=== PATIENT | female | born 1955 | race Caucasian/White ===

== ENCOUNTER 2023-10-09 13:00 | Outpatient (RCR) | payer MEDICARE, BC, SELFPAY | END 2024-01-01 11:01 | disposition home or self-care (01) | PROVIDERS: PCP Family Medicine; Visit Provider Family Medicine | DX: M54.6 Pain in thoracic spine (principal); G89.29 Other chronic pain; M54.50 Low back pain, unspecified; R29.3 Abnormal posture; M62.81 Muscle weakness (generalized); R29.898 Other symptoms and signs involving the musculoskeletal system; Z51.89 Encounter for other specified aftercare | CPT/HCPCS: 97110; 97140; 97161 ==

== ENCOUNTER 2024-04-30 06:05 | Inpatient (IN) | payer MEDICARE, BC, SELFPAY ==
[2024-04-30] VITALS (23 sets, daily range): BP systolic 95–146; BP diastolic 60–90; PULSE 60–80; RESP 13–19; TEMP 35.6–36.4; O2SAT 92–97; BMI 38.7
[2024-04-30] MEDS: OXYCODONE (CR) 10 MG TAB.ER.12H PO (06:40)
[2024-04-30] MEDS: ACETAMINOPHEN 500 MG TABLET 1000 MG PO ×3 (06:40→17:37)
[2024-04-30] MEDS: LACTATED RINGERS 1000 ML 1,000 ML 100 ML IV ×2 (06:53→08:56)
[2024-04-30] MEDS: SODIUM CHLORIDE 0.9 % (FLUSH) 10 ML SYRINGE IVF (06:54)
--- NOTE | 2024-04-30 07:01 | W.PM.H&PU ---
History & Physical Update History & Physical Update H&P Reviewed and patient assessed: No changes noted
--- NOTE | 2024-04-30 07:03 | CRLHL7_ITS ---
For Patients: As a result of the Cures Act, medical imaging exams and procedure reports are released immediately into your electronic medical record. You may view this report before your referring provider. If you have questions, please contact your health care provider. Indication: Postop TKA. Technique: Two views left knee Comparison: None. Findings: Left knee arthroplasty in anatomic alignment. No periprosthetic lucency or fracture. Expected postsurgical soft tissue changes. Impression: Left knee arthroplasty without radiographic evidence of complication. Dictated by Fco Medina MD @ 05/01/2024 11:43:48 AM (Electronically Signed)
[2024-04-30] MEDS: fentaNYL 100 MCG/2 ML inj IVP (07:11)
[2024-04-30] MEDS: MIDAZOLAM HCL 1 MG/ML inj IVP (07:11)
--- NOTE | 2024-04-30 07:18 | W.ANESCHARGE ---
Anesthesia Charges Start Date/Time Anesthesia Start Date: 04/30/24 Anesthesia Start Time: 07:42 Stop Date/Time Anesthesia Stop Date: 04/30/24 Anesthesia Stop Time: 09:24
--- NOTE | 2024-04-30 07:18 | W.PM.NB ---
Nerve Block Nerve Block Time Seen by Provider: 07:15 Date Seen: 04/30/24 Type of block requested by surgeon for post-operative analgesia: adductor canal Side: right Time out performed: Yes Verification of patient name: Yes Verification of date of : Yes Site marking: site marked Name of person performing procedure: Amor Continuous monitoring Was continuous monitoring of O2 sat, B/P, dental laboratory manager, recorded every 15 minutes?: Yes Procedure Checklist: sterile prep, needles and gloves Ultrasound guided. Images saved: Yes Medications given in 5ml increments after negative aspiration: Ropivicaine %: 0.5 mL: 20 Needle gauge: 20 Decadron (mg): 10 Precedex (mcg): 25 Patient tolerated procedure well: Yes Additional comments: Needle noted adjacent to nerve Block Charges Block Charge (with Pro Fee): Femoral Nerve Use of Ultrasound Machine for Block: Yes- US Guidance/pain block
--- NOTE | 2024-04-30 07:19 | P.NB_ITS ---
Nerve Block Nerve Block Time Seen by Provider: 07:15 Date Seen: 04/30/24 Type of block requested by surgeon for post-operative analgesia: geniculars Side: right Time out performed: Yes Verification of patient name: Yes Verification of date of : Yes Site marking: site marked Name of person performing procedure: Amor Continuous monitoring Was continuous monitoring of O2 sat, B/P, video game repair technician, recorded every 15 minutes?: Yes Procedure Checklist: sterile prep, needles and gloves Medications given in 5ml increments after negative aspiration: Ropivicaine %: 0.5 mL: 9 Needle gauge: 25 Patient tolerated procedure well: Yes Block Charges Block Charge (with Pro Fee): Genicular Nerve Block Use of Ultrasound Machine for Block: No
--- NOTE | 2024-04-30 07:21 | SUR.PREOP ---
TIME?OUT:?0711 PT/RN/MDA?VERIFICATION?OF?SURGICAL?SITE,?PROCEDURE,?AND?CONSENT OBTAINED?PRIOR?TO?INVASIVE?PROCEDURE.
[2024-04-30] MEDS: TRANEXAMIC ACID 100 MG/ML INJ 1000 MG IV (07:32)
[2024-04-30] MEDS: CEFAZOLIN 2 GM in 0.9 % SODIUM CHLORIDE Mini-bag 100 ML IVPB ×3 (07:38→22:55)
--- NOTE | 2024-04-30 08:51 | SUR.OPER ---
patient had a partial knee in [place], [place], implant removed--explanted right patella femoral joint piece per
--- NOTE | 2024-04-30 09:04 | PM.ORPRC ---
Procedure Note Date of procedure: 04/30/24 Procedure: PREOPERATIVE DIAGNOSIS: 1. Right knee osteoarthritis, secondary, severe 2. Status post previous right patellofemoral unicompartmental arthroplasty POSTOPERATIVE DIAGNOSIS: 1. Right knee osteoarthritis, secondary, severe 2. Status post previous right patellofemoral unicompartmental arthroplasty PROCEDURE: 1. Right revision total knee arthroplasty - subvastus with explantation of previous femoral component for patellofemoral unicompartmental arthroplasty. Patellar component was maintained as it was without scratch, defect, or damage. SURGEON: Segundo Lorenzo MD. DEBARKER OPERATOR: EDITA Ford - Of note, a skilled pediatric physical therapy assistant was critical for this case to aid in patient positioning, tissue retraction, limb manipulation/positioning, and closure. ANESTHESIA: Spinal anesthetic IMPLANTS: DePuy J&J all cemented TKA - Attune PS femur size 5 regular, size 4 tibia, 5 poly spacer; again, patellar component was maintained and thus not exchanged TOURNIQUET: 80 minutes at 300 torr EBL: 50 ml COMPLICATIONS: None evident INDICATIONS: The patient is a pleasant 68-year-old female who underwent a previous patellofemoral arthroplasty on this right knee approximately 2009 (Dr. Gilbert, [place]). She did well for number of years. Unfortunately, more recently she has experienced increasing pain about this right knee. It is worse with prolonged activities or stairs. Workup included radiographs which showed progression of osteoarthritis in the medial and lateral compartments. After discussing various options, she elected proceed with revision right TKA with removal of previous patellofemoral unicompartmental arthroplasty and placement of total knee arthroplasty. The reason for revision was not for infection, aseptic loosening, instability, but rather for progression of arthritic disease in the remaining medial and lateral compartments. FINDINGS: Large effusion upon entering the joint. Multiple osteophytes diffusely about the knee. Full-thickness chondral loss medial compartment. To lesser degree lateral compartment. Degenerative medial meniscus pathology. Patellofemoral arthroplasty implants were well fixed. No purulence encountered. No suspicion of infection. DESCRIPTION OF PROCEDURE: Following a thorough discussion of risks, benefits, and alternatives consent was obtained and the right knee was marked. The patient was brought to the operating room and placed supine on the operating table. Induction of anesthesia was undertaken. 2 g IV Ancef and 1 g tranexamic acid was administered within 1 hr of incision preoperatively. Proper time-out was performed identifying proper patient, site, procedure. The operative extremity was prepped and draped in the appropriate sterile fashion using ChloraPrep after the patient was positioned supine with all bony prominences well padded. A longitudinal, anterior, midline skin incision was made starting approximately 3cm proximal to the superior pole of the patella and advanced distal to the tibial tubercle. A subvastus approach was utilized. The previous Ethibond sutures that it close the median parapatellar arthrotomy were removed. A medial subperiosteal sleeve was created with knife, morales elevator and curved osteotome. The retropatellar fatpad was resected and the synovium in the suprapatellar pouch excised to visualize the anterior femoral cortex. Removal of the femoral component to the patellofemoral UKA was performed with a combination of microsagittal saw, flexible osteotomes, and manual removal/extraction. This came out in 1 piece. The cement mantle for the most part was maintained on the femur. No significant bone loss was encountered. As such, no stems were needed. We proceeded with a typical femoral preparation. The cement anteriorly was removed with our anterior cut and chamfer cuts. Femoral preparation was performed via an intramedullary guide. Step drill allowed access into the femoral canal. The distal cutting guide was placed with 5? of valgus and 11 mm cut on the distal femur. Femur was sized using a anterior referencing guide in 3? of external rotation. This found have a best fit with the sizing noted above. The 4 in 1 cutting block was then placed, and the distal femur shaped accordingly. The box cut was then created and the trial implant inserted to confirm appropriate fit. We turned our attention to the proximal tibia. Extramedullary guide was utilized for cutting with the goal of being 90 degree cut from the mechanical axis of the tibia in the varus/valgus plane utilizing tibial crest as the primary alignment. Initially a 2 mm resection was performed from the medial tibial plateau. Ultimately, balancing was achieved in both flexion and extension in both varus and valgus. The knee was able to achieve full extension as well comfortably. The patella was assessed and found have excellent stability to the patellar component, no scratching or defects, and excellent tracking when trials were placed. All trials were placed and found to have an excellent stability and balance. At this stage, trial implants were removed, the knee was thoroughly irrigated with normal saline, and the cement was mixed. After irrigation, the knee was thoroughly dried, and cement placed, with the real tibial and femoral implants placed along with the patella. Trial poly spacer was placed and confirmed to have excellent range of motion and full extension, and the real poly spacer opened and inserted. All extra cement was removed, and a 3 min Betadine soak performed. Finally, a final irrigation round with normal saline was performed. Closure performed with 0 Vicryl and #0 Stratafix for the quad tendon/retinaculum. 2-0 Vicryl for the subcutaneous and 4-0 Stratafix for subcuticular closure. Dressings were applied and the patient was awoken from anesthesia after the tourniquet deflated and transferred the PACU in stable condition. A skilled pediatric physical therapy assistant was critical for this case to aid in patient positioning, tissue retraction, bone exposure, limb manipulation/positioning, patient safety, and closure. PLAN: 1. Weight bear as tolerated operative extremity. 2. 23 hr perioperative antibiotics. 3. Ice. 4. PT/OT consults for ambulation assistance/mobility education. 5. Social work consult for discharge planning. 6. DVT prophylaxis with at SCDs and aspirin twice daily.
--- NOTE | 2024-04-30 09:46 | W.ANESCHARGE ---
Anesthesia Charges Start Date/Time Anesthesia Start Date: 04/30/24 Anesthesia Start Time: 07:42 Stop Date/Time Anesthesia Stop Date: 04/30/24 Anesthesia Stop Time: 09:24
--- NOTE | 2024-04-30 10:21 | SUR.PHASEI ---
patient met discharge criteria per anesthesia
[2024-04-30] MEDS: HYDROmorphone 0.5 mg/0.5 ml inj IVP (12:55)
[2024-04-30] MEDS: OXYCODONE 5 MG TABLET PO ×4 (12:57→22:54)
[2024-04-30] MEDS: ONDANSETRON 2 MG/ML inj 4 MG IVP (14:34)
--- NOTE | 2024-04-30 14:53 | P.IMCN_ITS ---
Date of Consult Consult date: 04/30/24 Primary Care Provider: Jose E Tovar MD Consult Narrative Reason for consult: Medical management of comorbidities Narrative: Bev Peoples is a 68 year old female who presented to the hospital today for an elective R TKA revision. There were no surgical or anesthetic complications noted during procedure. Patient's H&P reviewed, PCP is Dr Tovar. Past medical history significant for: Essential HTN, well controlled History of blood clots: No Postoperative plan: Home with partner When I see patient, she is fairly nauseated, working on some saltines and zach cassy. No other concerns for hospitalist team. Review of Systems Status of ROS: Reports: 10 or more systems reviewed and unremarkable except as noted in History and below PFSH [facility] Medical History (Updated 04/30/24 @ 17:20 by Apple Cardenas MD) Asymptomatic microscopic hematuria ?R31.21 - Asymptomatic microscopic hematuria (ICD-10) Hypertension ?I10 - Essential (primary) hypertension (ICD-10) Hyperlipidemia ?E78.5 - Hyperlipidemia, unspecified (ICD-10) Low back pain ?M54.50 - Low back pain, unspecified (ICD-10) Achilles tendinitis, left leg ?M76.62 - Achilles tendinitis, left leg (ICD-10) Degenerative joint disease ?M19.90 - Unspecified osteoarthritis, unspecified site (ICD-10) Surgical History (Updated 04/30/24 @ 16:12 by Karley Silver ~ WINDOWS DESKTOP ENGINEER, WINDOWS DESKTOP ENGINEER) History of revision of total knee arthroplasty (04/30/24) ?Z96.659 - Presence of unspecified artificial knee joint (ICD-10) H/O right knee surgery (09/06/09) ?Z98.890 - Other specified postprocedural states (ICD-10) History of bladder surgery ?Z98.890 - Other specified postprocedural states (ICD-10) H/O: hysterectomy ?Z90.710 - Acquired absence of both cervix and uterus (ICD-10) History of removal of cyst (10/19/04) ?Z98.890 - Other specified postprocedural states (ICD-10) Family History (Updated 08/07/23 @ 13:29 by Yulisa Phelps ~ FREIGHT TEAM ASSOCIATE, FREIGHT TEAM ASSOCIATE) Sister Psoriatic arthritis Social History (Updated 08/07/23 @ 13:27 by Yulisa Phelps ~ [facility], 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 What is your current living situation?: I presently have a place to live Problems where you live: no known problems Problems where you live details: n/a In the past 12 months, utilities in danger of being shut off: no In past 12 months, lack of transportation kept you from medical appts, meetings, work, or getting things needed for daily living: no In the past 12 mos, have been you worried that your food would run out before you had money to buy more?: never true In the past 12 mos, the food you bought just didn't last and you didn't have money to buy more?: never true Smoking Status: Never smoker Do you use any of these nicotine containing products: None Second hand tobacco smoke exposure: No How often do you have a drink containing alcohol: never AUDIT-C Alcohol total score: 0 Non-prescribed substance use: denies use How often does anyone, including family, friends and others, physically hurt you : never How often does anyone, including family, friends and others, insult or talk down to you: never How often does anyone, including family, friends and others, threaten you with harm: never How often does anyone, including family, friends and others, scream or curse at you: never Meds Home Medications and Allergies Home Medications ?Medication ?Instructions ?Recorded ?Confirmed ?Type amlodipine 5 mg tablet 5 mg PO DAILY 02/19/24 04/30/24 History meloxicam 15 mg tablet 15 mg PO DAILY 04/30/24 04/30/24 History Allergies Allergy/AdvReac Type Severity Reaction Status Date / Time No Known Drug Allergies Allergy Verified 04/30/24 06:27 Exam Narrative: Exam Narrative: GEN: Alert and oriented, speaking in full sentences in laying comfortably in bed HEENT: EOMIs bilaterally, no scleral icterus CV: Soft systolic murmur without concerning features R: LCTA bilaterally without concerning wheezing Ext: Bilateral Richard hose Skin: No concerning skin lesions or rashes on exposed skin Neuro: Nonfocal Psych: Appropriate Const: Vital Signs, click to edit/add: Vital Signs - 24 hr 04/30/24 06:52 04/30/24 07:12 04/30/24 07:15 Temperature 97.5 F L Pulse Rate 78 73 73 Pulse Rate [Pulse Oximeter] Respiratory Rate 16 16 16 Blood Pressure 146/84 H 145/78 H 141/73 H Blood Pressure [Le ft Arm] Pulse Oximetry 95 97 97 Oxygen Delivery Me thod Room Air Nasal Cannula Nasal Cannula Oxygen Flow Rate 2 2 04/30/24 09:39 04/30/24 09:45 04/30/24 09:50 Temperature 97.6 F 97.6 F 97.6 F Pulse Rate 79 76 73 Pulse Rate [Pulse Oximeter] Respiratory Rate 13 17 17 Blood Pressure 95/60 97/67 108/71 Blood Pressure [Le ft Arm] Pulse Oximetry 95 93 95 Oxygen Delivery Me thod Room Air Room Air Room Air Oxygen Flow Rate 04/30/24 09:55 04/30/24 10:00 04/30/24 10:05 Temperature 97.6 F 97.6 F 97.2 F L Pulse Rate 78 72 70 Pulse Rate [Pulse Oximeter] Respiratory Rate 19 14 18 Blood Pressure 110/74 116/74 120/76 Blood Pressure [Le ft Arm] Pulse Oximetry 93 94 93 Oxygen Delivery Me thod Room Air Room Air Room Air Oxygen Flow Rate 04/30/24 10:14 04/30/24 10:30 Temperature 96.8 F L 96.8 F L Pulse Rate 65 Pulse Rate [Pulse Oximeter] 64 Respiratory Rate 16 18 Blood Pressure 114/71 Blood Pressure [Le ft Arm] 113/68 Pulse Oximetry 94 94 Oxygen Delivery Me thod Room Air Room Air Oxygen Flow Rate Assessment and Plan Assessment and plan (1) History of revision of total replacement of right knee joint: Problem comment: - 04/30/24Bj Status: Acute (2) Hypertension: Status: Acute Plan - pain management and prophylaxis per orthopedic surgery team - continue home medications for comorbidities - anticipate routine postoperative course
[2024-04-30] MEDS: PROMETHAZINE 25 MG/ML INJ 12.5 MG IVP (17:37)
[2024-04-30] MEDS: LACTATED RINGERS 1000 ML 1,000 ML 75 ML IV (17:44)
--- NOTE | 2024-04-30 18:23 | PC.NURSE ---
shift note: pt from pacu @1014. post op protocol initiated. pt medicated for rt knee pain 06/14 @ 1300. pt nauseated and prn zofran given @1445. rt knee drsg c/d/i with ice shelton over surgical site. IV patent. pt pain returned @ 1700 in rt knee. pt had projectile emesis while PT assisting pt to bsc. Dr. Cardenas notified and order for Phenergan IV. pt tolerating toast, crackers and zach cassy.
[2024-04-30] MEDS: SENNOSIDES 1 TAB TABLET 2 TAB PO (20:55)
[2024-04-30] MEDS: ASPIRIN 81 MG TABLET EC PO (20:55)
[2024-04-30] MEDS: LORazepam 0.5 MG TABLET PO (20:55)
[2024-05-01 02:50] VITALS: BP 129/77; PULSE 83; RESP 16; TEMP 36; O2SAT 92
[2024-05-01] MEDS: CEFAZOLIN 2 GM in 0.9 % SODIUM CHLORIDE Mini-bag 100 ML IVPB (05:32)
[2024-05-01] MEDS: OXYCODONE 5 MG TABLET PO ×2 (05:32→08:45)
[2024-05-01] MEDS: ACETAMINOPHEN 500 MG TABLET 1000 MG PO (05:33)
--- NOTE | 2024-05-01 05:56 | PC.NURSE ---
End of shift [phone]: Pleasant and cooperative with cares. Right knee dressing clean, dry and intact. Pain well managed with current regimen. Transfers with SBA and ambulates with SBA with gait belt and walker. Denies any nausea or vomiting this shift. O2 at 1L per NC through the night to maintain sats >88%.
[2024-05-01 06:41] LABS: Hematocrit 36.1 % (33.0-51.0); Hemoglobin* 11.7 gm/dL (12.0-16.0); Immature Granulocytes Pct Auto 0.4 %; Lymphocytes Percent Auto 5.4 % (20-44); Mean Corpuscular HGB Conc 32 gm/dL (32-36); Mean Corpuscular Hemoglobin 29 pg (26-34); Mean Corpuscular Volume 89 fL (80-100); Monocytes Percent Auto 4.3 % (0.0-11.0); Neutrophils Percent Auto 89.9 % (42.0-72.0); Platelet Count* 78 K/uL (140-440); RDW Coefficient of Variation % 13.1 % (11.5-15.5); Red Blood Count 4.05 m/uL (4.00-5.20)
[2024-05-01 06:46] LABS: Slide Review Reflex No
[2024-05-01 07:03] LABS: Sodium* 137 mmol/L (135-149)
[2024-05-01 07:06] LABS: Creatinine* 0.6 mg/dL (0.5-1.5); Est. Creatinine Clearance* 47.79; Estimated Glomerular Filt Rate 99 ml/min
[2024-05-01 07:07] LABS: Blood Urea Nitrogen* 12 mg/dL (7-30)
[2024-05-01 08:30] VITALS: BP 139/85; PULSE 72; RESP 16; RESP 18; TEMP 36.4; O2SAT 96
[2024-05-01] MEDS: SENNOSIDES 1 TAB TABLET 2 TAB PO (08:45)
--- NOTE | 2024-05-01 10:19 | PM.IMPN1 ---
Progress Note: A&P Assessment and plan (1) Thrombocytopenia: Problem details: Likely due to surgery. No previous history of thrombocytopenia. Does have a previous history of bleeding associated with a miscarriage and with uterine fibroids. No other bleeding or clotting history Status: Acute (2) Leukocytosis: Problem details: Likely due to surgery. No obvious infection or other inflammatory process Status: Acute Plan Discharge to home with outpatient followup next week to check CBC and platelets and for routine follow-up and therapy following knee surgery. Time Spent With Patient Total time spent: Total time spent today is 35 minutes in coordination of care on the day of discharge Subjective Date Seen: 05/01/24 Interval history: Postop day 1 right total knee arthroplasty revision. Doing well. Pain is well controlled. No fever. Eating well. No cough or dyspnea. No abdominal pain. Patient has thrombocytopenia with platelets at 78K, hemoglobin of 11.7 and white count of 21.4, 90% neutrophils. Preop hemoglobin was 14.1. Discussed plan of care with Orthopedics. I believe the thrombocytopenia is due to platelet consumption in surgery. If this is the case platelets should correct next week. Check CBC and platelets next week. Recommend aspirin prophylaxis for DVT. If platelets are not recovering next week then consider workup for thrombocytopenia. White count should normalize next week and hemoglobin should also be stable unless ongoing bleeding.. Exam Narrative: Exam Narrative: She is alert and appears in no distress. Knee is examined there is moderate swelling around the knee without erythema or drainage from the wound. The beginning of bruising is present. Mild lower extremity edema distal to the knee Const: Vital Signs, click to edit/add: Vital Signs - 24 hr 04/30/24 10:30 04/30/24 10:30 04/30/24 10:45 Temperature 96.8 F L 96.8 F L 96.8 F L Pulse Rate 64 67 Pulse Rate [Pulse Oximeter] 64 Respiratory Rate 18 18 16 Blood Pressure 113/68 112/69 Blood Pressure [Le ft Arm] 113/68 Pulse Oximetry 94 94 95 Oxygen Delivery Me thod Room Air Room Air Room Air Oxygen Flow Rate 04/30/24 11:00 04/30/24 11:15 04/30/24 11:45 Temperature 96.8 F L 96.8 F L 96.1 F L Pulse Rate 62 70 62 Pulse Rate [Pulse Oximeter] Respiratory Rate 16 16 16 Blood Pressure 111/69 119/90 H 112/68 Blood Pressure [Le ft Arm] Pulse Oximetry 97 97 97 Oxygen Delivery Me thod Room Air Room Air Room Air Oxygen Flow Rate 04/30/24 12:15 04/30/24 13:15 04/30/24 14:15 Temperature 96.1 F L 96.1 F L 96.8 F L Pulse Rate 72 80 66 Pulse Rate [Pulse Oximeter] Respiratory Rate 16 16 16 Blood Pressure 114/74 126/86 117/74 Blood Pressure [Le ft Arm] Pulse Oximetry 93 94 95 Oxygen Delivery Me thod Room Air Room Air Room Air Oxygen Flow Rate 04/30/24 15:00 04/30/24 15:15 04/30/24 16:15 Temperature 96.8 F L 97.1 F L Pulse Rate 74 80 Pulse Rate [Pulse Oximeter] Respiratory Rate 16 16 Blood Pressure 122/88 123/87 Blood Pressure [Le ft Arm] Pulse Oximetry 95 92 92 Oxygen Delivery Me thod Room Air Room Air Oxygen Flow Rate 04/30/24 19:00 04/30/24 23:00 04/30/24 23:00 Temperature 97.4 F L Pulse Rate Pulse Rate [Pulse Oximeter] 80 60 Respiratory Rate 16 18 Blood Pressure Blood Pressure [Le ft Arm] 129/81 Pulse Oximetry 97 92 Oxygen Delivery Me thod Nasal Cannula Oxygen Flow Rate 2 04/30/24 23:00 04/30/24 23:00 05/01/24 02:50 Temperature 96.4 F L 96.8 F L Pulse Rate Pulse Rate [Pulse Oximeter] 60 83 Respiratory Rate 18 18 16 Blood Pressure Blood Pressure [Le ft Arm] 120/74 129/77 Pulse Oximetry 92 92 92 Oxygen Delivery Me thod Nasal Cannula Nasal Cannula Nasal Cannula Oxygen Flow Rate 1 1 1 05/01/24 08:30 05/01/24 08:30 05/01/24 08:30 Temperature Pulse Rate Pulse Rate [Pulse Oximeter] 72 Respiratory Rate 16 18 Blood Pressure Blood Pressure [Le ft Arm] Pulse Oximetry 96 96 Oxygen Delivery Me thod Room Air Oxygen Flow Rate 05/01/24 08:30 Temperature 97.6 F Pulse Rate Pulse Rate [Pulse Oximeter] 72 Respiratory Rate 16 Blood Pressure Blood Pressure [Le ft Arm] 139/85 Pulse Oximetry 96 Oxygen Delivery Me thod Room Air Oxygen Flow Rate Documenting provider has reviewed patient's vital signs: yes Labs Labs: Laboratory Results - last 24 hr 05/01/24 06:06 WBC 21.40 H RBC 4.05 Hgb 11.7 L Hct 36.1 MCV 89 MCH 29 MCHC 32 RDW Coeff of Zohaib 13.1 Plt Count 78 L Neut % (Auto) 89.9 H Lymph % (Auto) 5.4 L [place] % (Auto) 4.3 Eos % (Auto) 0.0 Baso % (Auto) 0.0 Neut # (Auto) 19.20 H Lymph # (Auto) 1.20 [place] # (Auto) 0.90 Eos # (Auto) 0.00 Baso # (Auto) 0.00 Abs Immat Gran (auto) 0.10 Imm/Tot Granulo (auto) 0.4 Sodium 137 Potassium 4.0 BUN 12 Creatinine 0.6 Estimated Creat Clear 47.79 Estimated GFR 99
--- NOTE | 2024-05-01 10:33 | PM.ORPN ---
Subjective Subjective Date Seen: 05/01/24 Principal diagnosis: Status postop day 1 right total knee arthroplasty Interval history: Patient reports doing well. Yesterday, dealt with nausea and vomiting with a few episodes of emesis that has since resolved. Feels her pain is minimal and is managed well with scheduled and PRN medications, ice. DVT prophylaxis: 81 mg aspirin by mouth twice daily, SCDs, walking. Denies fevers, chills, aches, N/V, CP, SOB/PLAZA, or lightheadedness. Ortho Exam Narrative Exam Narrative: -Patient appears comfortable; no apparent acute distress -Alert and oriented times 3 -Operative knee mildly swollen; soft tissues supple; no ecchymosis; no erythematous streaking Warmth appropriate -Surgical dressing clean, dry, intact; no drainage -Bilateral calfs soft; no significant swelling, edema, tenderness, erythema, discoloration, warmth, or palpable cords -2+ DP/PT pulses, intact dermatomes and myotomes distally (5/5 strength) Const Vital Signs, click to edit/add: Vital Signs - 24 hr 04/30/24 10:45 04/30/24 11:00 04/30/24 11:15 Temperature 96.8 F L 96.8 F L 96.8 F L Pulse Rate 67 62 70 Pulse Rate [Pulse Oximeter] Respiratory Rate 16 16 16 Blood Pressure 112/69 111/69 119/90 H Blood Pressure [Left Arm] Pulse Oximetry 95 97 97 Oxygen Delivery Method Room Air Room Air Room Air Oxygen Flow Rate 04/30/24 11:45 04/30/24 12:15 04/30/24 13:15 Temperature 96.1 F L 96.1 F L 96.1 F L Pulse Rate 62 72 80 Pulse Rate [Pulse Oximeter] Respiratory Rate 16 16 16 Blood Pressure 112/68 114/74 126/86 Blood Pressure [Left Arm] Pulse Oximetry 97 93 94 Oxygen Delivery Method Room Air Room Air Room Air Oxygen Flow Rate 04/30/24 14:15 04/30/24 15:00 04/30/24 15:15 Temperature 96.8 F L 96.8 F L Pulse Rate 66 74 Pulse Rate [Pulse Oximeter] Respiratory Rate 16 16 Blood Pressure 117/74 122/88 Blood Pressure [Left Arm] Pulse Oximetry 95 95 92 Oxygen Delivery Method Room Air Room Air Oxygen Flow Rate 04/30/24 16:15 04/30/24 19:00 04/30/24 23:00 Temperature 97.1 F L 97.4 F L Pulse Rate 80 Pulse Rate [Pulse Oximeter] 80 Respiratory Rate 16 16 Blood Pressure 123/87 Blood Pressure [Left Arm] 129/81 Pulse Oximetry 92 97 92 Oxygen Delivery Method Room Air Nasal Cannula Oxygen Flow Rate 2 04/30/24 23:00 04/30/24 23:00 04/30/24 23:00 Temperature 96.4 F L Pulse Rate Pulse Rate [Pulse Oximeter] 60 60 Respiratory Rate 18 18 18 Blood Pressure Blood Pressure [Left Arm] 120/74 Pulse Oximetry 92 92 Oxygen Delivery Method Nasal Cannula Nasal Cannula Oxygen Flow Rate 1 1 05/01/24 02:50 05/01/24 08:30 05/01/24 08:30 Temperature 96.8 F L Pulse Rate Pulse Rate [Pulse Oximeter] 83 72 Respiratory Rate 16 16 Blood Pressure Blood Pressure [Left Arm] 129/77 Pulse Oximetry 92 96 Oxygen Delivery Method Nasal Cannula Oxygen Flow Rate 1 05/01/24 08:30 05/01/24 08:30 Temperature 97.6 F Pulse Rate Pulse Rate [Pulse Oximeter] 72 Respiratory Rate 18 16 Blood Pressure Blood Pressure [Left Arm] 139/85 Pulse Oximetry 96 96 Oxygen Delivery Method Room Air Room Air Oxygen Flow Rate Assessment and Plan Assessment and plan (1) Thrombocytopenia: Problem details: Likely due to surgery. No previous history of thrombocytopenia. Does have a previous history of bleeding associated with a miscarriage and with uterine fibroids. No other bleeding or clotting history Status: Acute (2) Leukocytosis: Problem details: Likely due to surgery. No obvious infection or other inflammatory process Status: Acute (3) History of revision of total replacement of right knee joint: Problem details: - 04/30/24Bj Status: Acute Plan - Complete 23 hour perioperative antibiotics. - PT/OT consult for education and assistance. - Social work consult for discharge planning - Prescribed analgesics as needed - DVT prophylaxis: 81 mg aspirin by mouth twice daily, early ambulation and SCDs - Anticipation is for discharge to home with spouse today, 05/01/2024 if the patient remains medically stable, pain is controlled, and they are safe with mobilization. - We recognize the thrombocytopenia and leukocytosis. Patient comments to me that if she receives a cut, she definitely bleeds and bruises. Plan is to repeat platelet at [facility] next week; we will request these results. Leukocytosis appears to be more acute phase inflammatory response without evidence of infection.
--- NOTE | 2024-05-01 11:51 | PC.NURSE ---
Nursing Care Hours: [id number] Pt this shift calm and cooperative with cares, alert and oriented. Denies nausea. Tolerating regular diet. VSS. Dressing CDI. Ax1 with walker and gait belt, needing education on how to use walker. Pain controlled per eMAR. Reviewed labs and platelet 78. Held aspirin per nurse discretion and consulted with hospitalist and PA who were going to review the labs but did not give updated response. Removed IV at discharge and no bleeding noted from IV site. Applied minimal pressure. Pt then went to bathroom and returned with large hematoma on R hand where IV was. Pressure applied and hand raised above head. Instructed pt to keep hand elevated to promote fluid drainage and apply pressure to avoid increased size. Also discussed with pt signs and symptoms of bleeding that would need require further evaluation. Per pt, PA instructed pt to use aspirin once a day until follow up on labs is done or until follow up appt. Meloxicam held per discharge orders and Celebrex cancelled d/t insurance not covering it and PA aware. Pt wheeled out to spouse vehicle in stable condition.
== END 2024-05-01 11:45 | disposition home or self-care (01) | DRG 468 ==
PROVIDERS: Admitting Provider Orthopaedic Surgery Sports Medicine; PCP Family Medicine; Visit Provider Orthopaedic Surgery Sports Medicine
PROC: 0SPC0JZ Removal of Synthetic Substitute from Right Knee Joint, Open Approach (ICD-10-PCS; CPT 27447; principal; 2024-04-30 07:30)
DX: M17.5 Other unilateral secondary osteoarthritis of knee (principal); Z96.651 Presence of right artificial knee joint; G89.18 Other acute postprocedural pain; I10 Essential (primary) hypertension; D72.829 Elevated white blood cell count, unspecified; D69.6 Thrombocytopenia, unspecified; M25.761 Osteophyte, right knee; M25.461 Effusion, right knee; E78.5 Hyperlipidemia, unspecified; Z68.38 Body mass index [BMI] 38.0-38.9, adult
CPT/HCPCS: 01402; 36415; 64447; 64454; 73560; 76942; 82565; 84132; 84295; 84520; 85025; 97110; 97116; 97161; 97164; 97165; 97530; A9270; C1776; J0690; J1100; J1170; J2250; J2405; J2550; J2704; J2795; J3010; J3490; J7120

== ENCOUNTER 2024-06-13 11:15 | Outpatient (RCR) | payer MEDICARE, BC, SELFPAY ==
--- NOTE | 2024-04-22 15:27 | PT.OPEX ---
PT [place] Outpatient Eval PT [facility] Outpatient Eval Start: 04/22/24 13:24 Freq: Status: Active Protocol: Document 04/22/24 15:07 RALPH (Rec: 04/22/24 15:24 [facility] [id number]) E-signed By Princess Pelaez PT Physical Therapy Outpatient Evaluation Insurance Information Recert Due Date 07/20/24 Insurance Name Medicare B,Blue Cross/Blue Shield Medical Diagnosis RIGHT KNEE OA M17.11 RIGHT KNEE TKA REVISION Treating Diagnosis RIGHT KNEE PAIN Referring MD MILLS Subjective Subjective PATIENT REPORTS A GRADUAL INCREASE IN PAIN AND DYSFUNCTION WITH HER RIGHT KNEE BUT STATES, I JUST PLOWED THROUGH AND KEPT WORKING. SHE OWNS '[employer]' AND IS ON HER FEET QUITE A BIT DURING THE DAY WELL MAINTAIN HER OWN LANDSCAPING/GARDEN AT HOME. SHE REPORTS SIGNIFICANT MEDIAL KNEE PAIN AND DESCRIBES WALKING HAVING TO INTENTIONALLY KICK MY LEG IN ORDER FOR THE KNEE TO EXTEND DURING AMB. SHE HAD HER RIGHT KNEE REPLACED 14 YRS AGO WITH A HOCKEY KNEE THAT WAS PURPORTED TO LAST LONG. SHE IS HERE TO REVIEW AND PERFORM HER POST OP EXERCISES AND PREPARE HERSELF FOR THE REVISION SCHEDULED FOR 04/30/24 . 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 Time was spent discussing home modifications, Assistive devices, pain control, fall prevention, hospital stay time line, and assist needed for activities post surgically. Pt questions were answered and demonstrated understanding. Assessment Assessment/Impression PATIENT IS A [address] MILLS REFERRED TO EVAL AND TREAT PRE-OPERATIVELY AND POST OPERATIVELY RIGHT TKA REVISION; PMHX INCLUDES BUT NOT LIMITED RIGHT TKA 2010, HTN, H/O ELBOW SURGERY, LUMBAR DDD/DJD; PATIENT DEMONSTRATES SYMPTOMS CONSISTENT WITH SEVERE OA. SHE IS PROVIDED EDUCATION REGARDING THE SURGICAL PROCEDURE AND EXTENSIVE DISCUSSION ON WHAT TO EXPECT POST OPERATIVELY. DISCUSSED HOME MODIFICATION, ASSISTIVE DEVICES, PAIN CONTROL AND FALL PREVENTION. SUGGESTED THE PATIENT VISIT USED A BIT AND TRY TO OBTAIN A SHOWER CHAIR AND FWW BEFORE ORDERING NEW. SHE IS INSTRUCTED TO PERFORM THE EXERCISES PREOPERATIVELY TO CREATE MM MEMORY AND FACILITATE A SMOOTH MOST OPERATIVE EXPERIENCE. SHE DOES NOT HAVE MANY QUESTIONS AND FEELS PREPARED TO JUST GET IT DONE. SHE DEMONSTRATES GOOD ROM AND STRENGTH NOTING AN ANTALGIC GAIT DURING AMB. SHE VERBALIZED A GOOD UNDERSTANDING OF ALL SKILLED INSTRUCTION AND AGREEABLE TO POC AND FREQ. WE WILL RE- EVALUATE POST OPERATIVELY Primary Functional Limitations COMMUNITY AMB BALANCE AMB ON UNEVEN/INCLINE SURFACES PROLONGED STANDING STAIRS DEEP KNEE BENDS STOOPING Plan of Care Rehabilitation Potential Good Physical Therapy Goals 1. INDEPENDENT WITH HEP GOALS TO BE REASSESSED POST OPERATIVELY Coordination/Communication With Referral Source Treatment Plan/Direct Interventions Electrical Stimulation,Gait Training,Ice/Cold/ Vasopneumatic,Joint Mobilization,Manual Therapy, Neuromuscular Re-ed,Self-Care/ Home Management,Therapeutic Activities,Therapeutic Exercises Frequency/Duration 2X/WK Patient Will Be Discharged From Therapy Completion of LTG(s), Independently Progressing Evaluation Billing Untimed Code Treatment Minutes 15 PT Eval No Charge No Complexity Low Certification Information Initial Certification Date 04/22/24 Ending Certification Date 07/20/24 Provider Signature Required Yes Provider Signature Shows Agreement With POC & Medical Necessity Physician NPI Number Write NPI# Here Physician Comment/Change : Physician Signature & Date Requested Please Sign/Date Here
== END 2024-07-17 14:08 | disposition home or self-care (01) ==
PROVIDERS: PCP Family Medicine; Visit Provider Orthopaedic Surgery Sports Medicine
DX: M17.11 Unilateral primary osteoarthritis, right knee (principal); Z51.89 Encounter for other specified aftercare
CPT/HCPCS: 97110; 97161; 97164

== ENCOUNTER 2025-01-15 10:28 | Outpatient (CLI) | payer MEDICARE, MEDICAID, SELFPAY ==
--- NOTE | 2025-01-15 10:45 | CRLHL7_ITS ---
For Patients: As a result of the Century Cures Act, medical imaging exams and procedure reports are released immediately into your electronic medical record. You may view this report before your referring provider. If you have questions, please contact your health care provider. CLINICAL HISTORY: thrombocytopenia COMPARISON: none TECHNIQUE: Real time alexander scale imaging and color Doppler analysis was performed of the abdomen. FINDINGS: Liver echotexture is diffusely increased. No intrahepatic mass. The liver measures 14.5 cm. The spleen is of normal size. The visualized pancreas appears normal. The proximal abdominal aorta and IVC appear normal. There is no evidence of ascites. The gallbladder is of normal size and there are multiple layering echogenic stones within the gallbladder lumen. The gallbladder wall measures 2.1 mm in thickness. The common bile duct measures 9.3 mm in size within the maria t hepatis. Incidental extrarenal pelvis on the right measuring 1 cm. The right kidney measures 11.7 cm in length and the left kidney measures 12.2 cm. There is no evidence of a renal calculus or hydronephrosis. IMPRESSION: Diffuse hepatic steatosis. No intrahepatic mass or ascites. Multiple stones in the gallbladder compatible with cholelithiasis. The common bile duct is dilated measuring up to 9.3 millimeters. Further evaluation with MRCP should be considered for further evaluation of possible common bile duct stone. No splenomegaly. Dictated by Kp Thomas MD @ 01/16/2025 10:27:01 AM (Electronically Signed)
== END 2025-01-15 10:29 | disposition home or self-care (01) ==
PROVIDERS: PCP Family Medicine; Visit Provider Internal Medicine Hematology & Oncology
DX: D69.6 Thrombocytopenia, unspecified (principal); K76.0 Fatty (change of) liver, not elsewhere classified; K80.20 Calculus of gallbladder without cholecystitis without obstruction; D72.829 Elevated white blood cell count, unspecified; R58 Hemorrhage, not elsewhere classified; N92.0 Excessive and frequent menstruation with regular cycle; D68.9 Coagulation defect, unspecified
CPT/HCPCS: 76700

== ENCOUNTER 2025-02-03 11:06 | Outpatient (CLI) | payer MEDICARE, MEDICAID, SELFPAY ==
[2025-02-03 11:13] VITALS: BP 144/87; PULSE 76; RESP 16; O2SAT 97; BMI 35.5
[2025-02-03 12:24] LABS: Basophils Absolute Auto 0.09 K/uL (0.00-0.30); Basophils Percent Auto 1.1 % (0.0-3.0); Eosinophils Absolute Auto 0.14 K/uL (0.00-0.50); Eosinophils Percent Auto 1.7 % (0.0-7.0); Hematocrit 42.9 % (33.0-51.0); Hemoglobin* 14.2 gm/dL (12.0-16.0); Immature Granulocytes Abs Auto 0.03 K/uL (0.00-0.30); Immature Granulocytes Pct Auto 0.4 %; Immature Reticulocyte Fraction 7.9 % (3.0-15.9); Lymphocytes Absolute Auto 2.27 K/uL (0.90-2.90); Lymphocytes Percent Auto 27.1 % (20-44); Mean Corpuscular HGB Conc 33 gm/dL (32-36); Mean Corpuscular Hemoglobin 29 pg (26-34); Mean Corpuscular Volume 88 fL (80-100); Neutrophils Absolute Auto 5.35 K/uL (1.7-7.0); Neutrophils Percent Auto 63.7 % (42.0-72.0); RDW Coefficient of Variation % 13.4 % (11.5-15.5); Red Blood Count 4.89 m/uL (4.00-5.20); Reticulocyte Hemoglobin Equivi 30.8 pg (29.0-35.0); Reticulocyte Percent 1.3 % (0.5-2.0); Reticulocytes Absolute 0.06 # (0.03-0.08); White Blood Count* 8.38 K/uL (4.50-11.00)
[2025-02-03 12:32] VITALS: BP 115/75; PULSE 80; RESP 14; O2SAT 94
--- NOTE | 2025-02-03 12:35 | P.ANES_ITS ---
Anesthesia Charges Start Date/Time Anesthesia Start Date: 02/03/25 Anesthesia Start Time: 11:50 Stop Date/Time Anesthesia Stop Date: 02/03/25 Anesthesia Stop Time: 12:35 Coding CPT Codes CPT Codes: ANESTH BONE ASPIRATE/BX - 90618 ([id number]) P2 - PATIENT W/MILD SYST DISEASE, QZ - JEWISH HISTORY PROFESSOR SVC W/O PATTERN GRADER BY
--- NOTE | 2025-02-03 12:35 | W.ANESCHARGE ---
Anesthesia Charges Start Date/Time Anesthesia Start Date: 02/03/25 Anesthesia Start Time: 11:50 Stop Date/Time Anesthesia Stop Date: 02/03/25 Anesthesia Stop Time: 12:35 Coding CPT Codes CPT Codes: ANESTH BONE ASPIRATE/BX - 44944 ([id number]) P2 - PATIENT W/MILD SYST DISEASE, QZ - LOAN REVIEW ANALYST SVC W/O PLASTERER SPRAY GUN BY
[2025-02-03 12:43] LABS: Slide Review Reflex Yes
[2025-02-03 12:44] LABS: Slide Review Acceptable Review (Acceptable)
[2025-02-03 12:45] VITALS: BP 140/80; PULSE 64; RESP 14; O2SAT 97
[2025-02-03 12:53] LABS: Platelet Count* 40 K/uL (140-440)
[2025-02-03 13:00] VITALS: BP 107/79; PULSE 85; RESP 16; O2SAT 94
== END 2025-02-03 13:31 | disposition home or self-care (01) ==
LOC: OP CLINIC 11:07
PROVIDERS: PCP Family Medicine; Visit Provider Internal Medicine Hematology & Oncology
DX: D69.6 Thrombocytopenia, unspecified (principal)
CPT/HCPCS: 01112; 36415; 38222; 81450; 85025; 85045; 88184; 88185; 88237; 88264; 88305; 88311; 88313; 88341; 88342; 88360; J1644; J2003

== ENCOUNTER 2025-06-08 09:00 | Outpatient (RCR) | payer MEDICARE, MEDICAID, SELFPAY ==
[2025-01-06 09:59] LABS: Hematocrit 45.3 % (33.0-51.0); Hemoglobin* 15.1 gm/dL (12.0-16.0); Immature Granulocytes Abs Auto 0.12 K/uL (0.00-0.30); Immature Granulocytes Pct Auto 1.4 %; Immature Reticulocyte Fraction 6.4 % (3.0-15.9); Lymphocytes Absolute Auto 2.17 K/uL (0.90-2.90); Mean Corpuscular HGB Conc 33 gm/dL (32-36); Mean Corpuscular Hemoglobin 29 pg (26-34); Mean Corpuscular Volume 88 fL (80-100); RDW Coefficient of Variation % 13.2 % (11.5-15.5); Red Blood Count 5.18 m/uL (4.00-5.20); Reticulocyte Hemoglobin Equivi 31.4 pg (29.0-35.0); Reticulocytes Absolute 0.07 # (0.03-0.08); White Blood Count* 8.73 K/uL (4.50-11.00)
[2025-01-06 10:22] LABS: INR 0.95 (0.91-1.10); Prothrombin Time 13.5 Seconds
[2025-01-06 10:24] LABS: Albumin* 4.7 g/dL (3.3-5.0); Chloride* 99 mmol/L (96-114); Sodium* 138 mmol/L (135-149)
[2025-01-06 10:25] LABS: Potassium* 4.1 mmol/L (3.6-5.1)
[2025-01-06 10:27] LABS: Alanine Aminotransferase* 76 U/L (4-35); Alkaline Phosphatase* 92 U/L (40-150); Anion Gap 9 mEq/L (7-15); Aspartate Amino Transferase* 55 U/L (12-35); Bilirubin Total* 0.8 mg/dL (0.1-1.5); Blood Urea Nitrogen* 15 mg/dL (7-30); Carbon Dioxide* 30 mmol/L (20-32); Creatinine* 0.7 mg/dL (0.5-1.5); Est. Creatinine Clearance* 49.12; Estimated Glomerular Filt Rate 95 ml/min; Glucose* 121 mg/dL (60-115); Total Protein* 8.2 g/dL (6.0-8.3)
[2025-01-06 10:28] LABS: Calcium* 9.4 mg/dL (8.4-10.6)
[2025-01-06 10:43] LABS: Slide Review Reflex Yes
[2025-01-06 11:17] LABS: Vitamin B12* 819 pg/mL (243-894)
[2025-01-06 11:29] LABS: HIV 1/2/P24 Combo Screen* Negative (Negative)
[2025-01-06 11:31] LABS: Hepatitis C Virus Antibody* Negative (Negative)
[2025-01-06 11:47] LABS: Slide Review Acceptable Review (Acceptable)
[2025-01-07 13:01] LABS: Folate, Serum >22.3 ng/mL (>=5.9)
[2025-02-02 11:54] LABS: Hematocrit 42.8 % (33.0-51.0); Hemoglobin* 14.2 gm/dL (12.0-16.0); Immature Granulocytes Abs Auto 0.05 K/uL (0.00-0.30); Immature Granulocytes Pct Auto 0.6 %; Lymphocytes Absolute Auto 2.34 K/uL (0.90-2.90); Mean Corpuscular HGB Conc 33 gm/dL (32-36); Mean Corpuscular Hemoglobin 29 pg (26-34); Mean Corpuscular Volume 87 fL (80-100); RDW Coefficient of Variation % 13.6 % (11.5-15.5); Red Blood Count 4.90 m/uL (4.00-5.20); White Blood Count* 8.73 K/uL (4.50-11.00)
[2025-02-02 12:07] LABS: Slide Review Reflex Yes
[2025-02-02 12:33] LABS: Slide Review Acceptable Review (Acceptable)
[2025-02-03 17:31] LABS: Anti-Nuclear Ab(ANA)IgG ELISA None Detected (None Detected)
[2025-02-04 04:15] LABS: Copper, Serum/Plasma 111.4 ug/dL (80.0-155.0)
[2025-02-05 01:50] LABS: von WillebrandFactorAntigen 158 % (52-214); vonWillebrandFactorActivityRCF 127 % (51-215)
[2025-02-23 12:11] LABS: H pylori Ag Stool* Negative (Negative)
[2025-03-16 09:49] LABS: Hematocrit 43.2 % (33.0-51.0); Hemoglobin* 14.1 gm/dL (12.0-16.0); Immature Granulocytes Abs Auto 0.03 K/uL (0.00-0.30); Immature Granulocytes Pct Auto 0.4 %; Lymphocytes Absolute Auto 2.26 K/uL (0.90-2.90); Mean Corpuscular HGB Conc 33 gm/dL (32-36); Mean Corpuscular Hemoglobin 29 pg (26-34); Mean Corpuscular Volume 89 fL (80-100); RDW Coefficient of Variation % 13.6 % (11.5-15.5); Red Blood Count 4.83 m/uL (4.00-5.20); White Blood Count* 8.49 K/uL (4.50-11.00)
[2025-03-16 10:01] LABS: Slide Review Reflex No
[2025-04-13 09:06] LABS: Hematocrit 43.8 % (33.0-51.0); Hemoglobin* 14.2 gm/dL (12.0-16.0); Immature Granulocytes Abs Auto 0.05 K/uL (0.00-0.30); Immature Granulocytes Pct Auto 0.6 %; Lymphocytes Absolute Auto 2.46 K/uL (0.90-2.90); Mean Corpuscular HGB Conc 32 gm/dL (32-36); Mean Corpuscular Hemoglobin 29 pg (26-34); Mean Corpuscular Volume 88 fL (80-100); RDW Coefficient of Variation % 13.2 % (11.5-15.5); Red Blood Count 4.97 m/uL (4.00-5.20); White Blood Count* 8.52 K/uL (4.50-11.00)
[2025-04-13 09:09] LABS: Slide Review Reflex No
[2025-06-08 09:25] LABS: Hematocrit 43.7 % (33.0-51.0); Hemoglobin* 14.6 gm/dL (12.0-16.0); Immature Granulocytes Abs Auto 0.04 K/uL (0.00-0.30); Immature Granulocytes Pct Auto 0.5 %; Lymphocytes Absolute Auto 2.41 K/uL (0.90-2.90); Mean Corpuscular HGB Conc 33 gm/dL (32-36); Mean Corpuscular Hemoglobin 29 pg (26-34); Mean Corpuscular Volume 88 fL (80-100); RDW Coefficient of Variation % 13.4 % (11.5-15.5); Red Blood Count 4.96 m/uL (4.00-5.20); White Blood Count* 8.00 K/uL (4.50-11.00)
[2025-06-08 09:30] LABS: Slide Review Reflex No
== END 2025-07-05 23:59 | disposition home or self-care (01) ==
LOC: CCIC 09:00
PROVIDERS: PCP Family Medicine; Referring Provider Family Medicine; Visit Provider Internal Medicine Hematology & Oncology
DX: D69.6 Thrombocytopenia, unspecified (principal)
CPT/HCPCS: 36415; 80053; 82525; 82607; 82728; 82746; 84439; 84443; 84481; 85025; 85045; 85240; 85245; 85246; 85610; 85730; 86038; 86703; 86803; 87338; 99202; 99204; 99205; 99213; 99214; G0463